=== PATIENT | male | born 1965 | race Caucasian/White ===

== ENCOUNTER 2019-06-10 14:34 | Emergency (ER) | payer OTHER ==
[~2019-06-10] VITALS: Ht 182.9 cm; Wt 92.5 kg
[2019-06-10 14:58] VITALS: Ht 182.9 cm; Wt 92.5 kg
[2019-06-10 15:57] VITALS: BP 140/71
== END 2019-06-10 15:57 | disposition home or self-care (01) ==
LOC: ED 14:34
DX: S96.812A Strain of other specified muscles and tendons at ankle and foot level, left foot, initial encounter (principal); F17.210 Nicotine dependence, cigarettes, uncomplicated; W31.89XA Contact with other specified machinery, initial encounter; Y93.89 Activity, other specified; Y92.89 Other specified places as the place of occurrence of the external cause; Y99.8 Other external cause status
CPT/HCPCS: 99406